=== PATIENT | female | born 1960 | race Asian ===

== ENCOUNTER 2020-08-10 12:57 | Inpatient (IN) | payer OTHER ==
[~2020-08-10] VITALS: Ht 157.5 cm; Wt 54.9 kg
[2020-08-10] MEDS ORDERED: SODIUM CHLORIDE 0.9% 1000ML 1,000 ML IV STA (13:19)
[2020-08-10 13:27] LABS: BASOPHILS # (AUTO) 0.1 (0.0-0.1); BASOPHILS % 0.9 % (0.0-1.0); EOSINOPHILS # (AUTO) 0.2 (0.0-0.4); EOSINOPHILS % 2.3 % (0.0-6.0); HEMATOCRIT 39.6 % (34.2-44.1); LYMPHOCYTES # (AUTO) 3.7 (1.0-3.2); LYMPHOCYTES % 55.4 % (18.0-39.1); MEAN CORPUSCULAR HEMOGLOBIN 19.5 pg (28-32); MEAN CORPUSCULAR HGB CONC 30.3 g/dL (31-35); MEAN CORPUSCULAR VOLUME 64.3 fL (81-99); MONOCYTES # (AUTO) 0.6 (0.2-0.8); MONOCYTES % 8.3 % (4.4-11.3); NEUTROPHILS # (AUTO) 2.2 (2.1-6.9); NEUTROPHILS % 32.9 % (38.7-80.0); PLATELET COUNT 356 x10e3/uL (140-360); RED BLOOD COUNT 6.16 x10e6/uL (3.6-5.1); RED CELL DISTRIBUTION WIDTH 15.3 % (11.7-14.4)
[2020-08-10] MEDS ORDERED: PANTOPRAZOLE 40 MG 10ML VIAL IV NR (13:30)
[2020-08-10] MEDS ORDERED: ASPIRIN 81 MG CHEW TAB PO ONE (13:30)
[2020-08-10] MEDS ORDERED: METOPROLOL TARTRATE INJ 1 MG/ML VIAL IV ONE (13:30)
[2020-08-10] MEDS ORDERED: ATORVASTATIN CA20 MG PO (13:33)
[2020-08-10] MEDS ORDERED: LOSARTAN POTAS100 MG PO (13:33)
[2020-08-10] MEDS ORDERED: ATENOLOL50 MG PO (13:33)
[2020-08-10 13:41] LABS: ALANINE AMINOTRANSFERASE 30 IU/L (0-55); ALBUMIN 4.2 g/dL (3.5-5.0); ALBUMIN/GLOBULIN RATIO 1.1 (0.8-2.0); ALKALINE PHOSPHATASE 85 IU/L (40-150); ANION GAP 12.6 mmol/L (8-16); BLOOD UREA NITROGEN 11 mg/dL (7-26); BUN/CREATININE RATIO 15 (6-25); CARBON DIOXIDE 23 mmol/L (22-29); CHLORIDE 103 mmol/L (98-107); CREATINE KINASE 74 IU/L (29-168); CREATININE, SERUM 0.74 mg/dL (0.57-1.11); EST GLOMERULAR FILTRATION RATE > 60 ML/MIN (60-); GLUCOSE 179 mg/dL (74-118); MAGNESIUM 1.9 MG/DL (1.3-2.1); POTASSIUM 3.6 mmol/L (3.5-5.1); SODIUM 135 mmol/L (136-145)
[2020-08-10] MEDS ORDERED: ONDANSETRON HCL INJ 2MG/ML 2ML 2 MG/ML VIAL IV PRN (15:15)
[2020-08-10] MEDS ORDERED: MORPHINE SULFATE INJ 2 MG/ML SYR IV PRN (15:15)
[2020-08-10] MEDS: FAMOTIDINE 20 MG/2 ML VIAL IV SCH (15:44)
[2020-08-10] MEDS: CEFTRIAXONE 1 GM in SODIUM CHLORIDE 0.9% 50ML 50 ML IV SCH (15:44)
[2020-08-10] MEDS: AZITHROMYCIN 500MG/NS 250 ML 250 ML IV SCH (15:44)
[2020-08-10 18:20] LABS: CREATINE KINASE 54 IU/L (29-168)
[2020-08-10 19:00] VITALS: BP 134/87
[2020-08-10 20:00] VITALS: BP 134/87
[2020-08-10] MEDS ORDERED: ACETAMINOPHEN 325 MG TAB PO PRN (20:30)
[2020-08-10] MEDS ORDERED: ATORVASTATIN 20 MG TAB PO SCH (21:00)
[2020-08-10] MEDS: ACETAMINOPHEN 325 MG TAB PO PRN (21:45)
[2020-08-10 23:48] VITALS: BP 134/87
[2020-08-11] VITALS (7 sets, daily range): BP systolic 93–132; BP diastolic 66–87
[2020-08-11 02:52] LABS: CREATINE KINASE MB 1.2 ng/mL (0-5.0)
[2020-08-11] MEDS: FAMOTIDINE 20 MG/2 ML VIAL IV SCH ×2 (03:07→15:15)
[2020-08-11] MEDS: METOPROLOL TARTRATE 25 MG TAB PO SCH ×2 (05:00→16:31)
[2020-08-11 05:52] LABS: BASOPHILS % 0.5 % (0.0-1.0); EOSINOPHILS # (AUTO) 0.1 (0.0-0.4); EOSINOPHILS % 2.1 % (0.0-6.0); HEMATOCRIT 35.1 % (34.2-44.1); HEMOGLOBIN 10.6 g/dL (12.0-16.0); LYMPHOCYTES # (AUTO) 2.4 (1.0-3.2); LYMPHOCYTES % 38.5 % (18.0-39.1); MEAN CORPUSCULAR HEMOGLOBIN 19.6 pg (28-32); MEAN CORPUSCULAR HGB CONC 30.2 g/dL (31-35); MEAN CORPUSCULAR VOLUME 64.8 fL (81-99); MONOCYTES # (AUTO) 0.5 (0.2-0.8); MONOCYTES % 8.3 % (4.4-11.3); NEUTROPHILS # (AUTO) 3.1 (2.1-6.9); NEUTROPHILS % 50.4 % (38.7-80.0); PLATELET COUNT 287 x10e3/uL (140-360); RED BLOOD COUNT 5.42 x10e6/uL (3.6-5.1); RED CELL DISTRIBUTION WIDTH 15.3 % (11.7-14.4)
[2020-08-11 06:21] LABS: CREATINE KINASE MB 1.1 ng/mL (0-5.0)
[2020-08-11 06:55] LABS: ALANINE AMINOTRANSFERASE 27 IU/L (0-55); ALBUMIN 3.6 g/dL (3.5-5.0); ALBUMIN/GLOBULIN RATIO 1.1 (0.8-2.0); ALKALINE PHOSPHATASE 72 IU/L (40-150); BLOOD UREA NITROGEN 15 mg/dL (7-26); BUN/CREATININE RATIO 21 (6-25); CALCIUM 8.6 mg/dL (8.4-10.2); CARBON DIOXIDE 22 mmol/L (22-29); CHLORIDE 106 mmol/L (98-107); CHOL/HDL RATIO 3.1 (3.0-3.6); CHOLESTEROL 155 MD/DL (0-199); CREATININE, SERUM 0.71 mg/dL (0.57-1.11); EST GLOMERULAR FILTRATION RATE > 60 ML/MIN (60-); GLUCOSE 103 mg/dL (74-118); HDL CHOLESTEROL 50 MG/DL (40-60); LDL CHOLESTEROL 67 MG/DL (60-130); SODIUM 138 mmol/L (136-145); TRIGLYCERIDES 190 MG/DL (0-149)
[2020-08-11] MEDS ORDERED: SODIUM CHLORIDE 0.9% 250ML 250 ML ONE (07:33)
[2020-08-11] MEDS ORDERED: ATENOLOL 50 MG TAB PO SCH (09:00)
[2020-08-11] MEDS: CEFTRIAXONE 1 GM in SODIUM CHLORIDE 0.9% 50ML 50 ML IV SCH (09:00)
[2020-08-11] MEDS ORDERED: ASPIRIN 81 MG ENTERIC COATED PO SCH (09:00)
[2020-08-11] MEDS: AZITHROMYCIN 500MG/NS 250 ML 250 ML IV SCH (09:00)
[2020-08-11] MEDS ORDERED: LOSARTAN POTASSIUM 100 MG TAB PO SCH (09:00)
[2020-08-11] MEDS ORDERED: DOCUSATE SODIUM 100 MG CAP PO PRN (11:00)
[2020-08-11] MEDS: ACETAMINOPHEN 325 MG TAB PO PRN (11:59)
[2020-08-11] MEDS ORDERED: ENOXAPARIN SOD INJ 40 MG/0.4 ML SYR SC SCH (17:00)
[2020-08-11] MEDS ORDERED: ZITHROMAX500 MG PO (20:15)
[2020-08-11] MEDS ORDERED: TESSALON PERLE100 MG PO (20:15)
[2020-08-11] MEDS ORDERED: KEFLEX125 MG/5 M PO (20:15)
== END 2020-08-11 20:51 | disposition home or self-care (01) | DRG 195 ==
LOC: ER 13:20 → ERHOLD 15:06 → MED/SURG2 17:30
PROVIDERS: ADMIT Internal Medicine; ATTEND Internal Medicine
DX: J18.9 Pneumonia, unspecified organism (principal); E78.5 Hyperlipidemia, unspecified; I10 Essential (primary) hypertension; Z20.822 Contact with and (suspected) exposure to COVID-19
CPT/HCPCS: 36415; 71045; 80053; 80061; 82550; 82553; 83735; 84484; 85025; 85379; 87040; 93005; 99284; J0456; J0696; J7030; J7050; U0002